=== PATIENT | male | born 1995 | race Two or more races ===

== ENCOUNTER 2025-02-19 22:43 | Inpatient (IN) | payer OTHER, SELFPAY ==
[2025-02-19 22:48] VITALS: BP 156/94; PULSE 72; RESP 16; TEMP 37.1; O2SAT 100; BMI 21.3
--- NOTE | 2025-02-19 23:00 | MHC.EDTECH ---
Did policy change clerk with pt in the bathroom pod. Pt belongings is done and in room locker 3 in the pod
[2025-02-19 23:31] LABS: Hematocrit 40.8 % (42.0-52.0); Hemoglobin 14.9 g/dl (14.0-18.0); Imm Gran Abs Auto 0.00 X10*3/uL (0.00-0.03); Imm Gran Pct Auto 0.0 % (0.0-0.4); Lymphocytes Absolute Auto 2.3 X10*3/uL (1.2-4.9); MANUAL DIFF FLAG NO; Mean Corpuscular HGB Conc 36.5 g/dl (31.0-36.0); Mean Corpuscular Hemoglobin 29.3 pg (27.0-33.0); Mean Corpuscular Volume 80.2 fL (80.0-98.0); NRBC Abs Auto 0.000 X10*3/uL (0.0-0.012); NRBC Pct Auto 0.0 /100WBC (0.0-0.2); Platelet Count 252 X10*3/uL (160-400); Red Blood Count 5.09 X10*6/uL (4.60-5.80); White Blood Count 4.5 X10*3/uL (4.8-10.8)
[2025-02-19 23:42] LABS: Cannabinoid Screen Urine POSITIVE (Not Detect)
--- NOTE | 2025-02-19 23:44 | ED_ITS ---
HPI - Psych General Chief Complaint: Psychiatric Symptoms Stated Complaint: Si without plan, sect 12 Time Seen by Provider: 02/19/25 22:45 Source: patient and EMS Mode of arrival: EMS Limitations: no limitations History of Present Illness ED Provider: Radha Ferrell NP HPI Narrative: Patient is a 29 year male presents emergency department via EMS for evaluation he is coming from [facility] where he is sent on a section 12 as an inpatient bed search. Has been having command auditory hallucinations to kill himself he does admit to SI does not endorse any specific plan. He denies homicidal ideations. He recently has had increased depression associated with a poor relationship with his significant other. He states that he has previously being seen by Dr. Wheeler he is only prescribed Lexapro which he states he has been taking. He denies any recreational drug or alcohol usage. He has no physical complaints, denies any recent ill like symptoms URI symptoms, gastrointestinal symptoms or genitourinary symptoms. Related Data Home Medications ?Medication ?Instructions ?Recorded ?Confirmed escitalopram oxalate 10 mg tablet 10 mg PO DAILY 02/1902/19/25 hydroxyzine HCl 25 mg tablet 25 mg PO QID PRN anxiety 02/19/25 02/19/25 Allergies Allergy/AdvReac Type Severity Reaction Status Date / Time No Known Allergies Allergy Verified 02/19/25 22:51 Review of Systems 2 Review of Systems: Yes all other systems are reviewed and are negative PMFSH Past Medical History Attestation statement: The following information was validated with the patient. Source: old records reviewed Social History Social History Housing: House Do you presently have visiting nurse or other home services: No Patient Tobacco Use Status: Never used Tobacco Have you been hit, kicked, punched, or otherwise hurt by someone within the past year? If so, by whom?: No Do you feel safe in your current relationship?: No Current Relationship Is there a partner from a previous relationship who is making you feel unsafe now?: No Are you made to feel afraid or neglected: No Advance Directives: No Advance Directives Information Provided: Yes Do you have a plan to hurt others: No Plan Recently lost weight without trying: Yes How much weight loss: 2-13 pounds Eating poorly because of decreased appetite: Yes Nutrition screen score: 4 Poor oral hygiene: No Physical Exam 2 Vital Signs: Vital Signs: Last Vital Signs Temp 98.9 F 02/20/25 20:00 Pulse 79 02/20/25 20:00 Resp 18 02/20/25 20:00 BP 139/87 02/20/25 20:00 Pulse Ox 98 02/20/25 20:00 O2 Del Method Room Air 02/20/25 20:00 BMI result Body Mass Index 21.3 Appearance: Alert.?Oriented to person, place and time. No acute distress.?Normal affect. Eyes: Pupils equal, round and reactive to light.? ENT: Pharynx normal.?? Neck: Normal inspection.? Neck supple.?? CVS: Heart sounds normal. Normal heart rate and rhythm.? Pulses normal.?? Respiratory: No respiratory distress.? Lung sounds clear to auscultation bilaterally?? Abdomen: Soft and non-tender. Normoactive bowel sounds. Skin: Skin warm and dry.? Normal skin color.? Extremities: No lower extremity edema.? Neuro: Moves all extremities spontaneously. Sensation intact bilaterally. CN II- XII intact. No focal neuro deficits. Ambulates with normal steady gait. Course Reevaluation(s) Reevaluation #1: DR. Mendes's Progress note:02/20/2025 8;40. No events overnight, home medication reconciliation was done, VSS, no event reported by nursing overnight, inpatient bed search is underway, Continue with physician observation. Time: 08:41 Medications Administered Generic Name Dose Route Start Last Admin Trade Name Freq PRN Reason Stop Dose Admin Escitalopram Oxalate 10 mg 02/20/25 09:00 02/20/25 10:39 Escitalopram Oxalate 10 Mg Tablet PO 10 mg DAILY CLIVE Administration Quetiapine Fumarate 25 mg 02/20/25 16:04 02/20/25 16:37 Quetiapine Fumarate 25 Mg Tablet PO 25 mg Q4H PRN Administration anxiety Trazodone HCl 50 mg 02/20/25 21:00 02/20/25 20:31 Trazodone Hcl 50 Mg Tablet PO 50 mg BEDTIME CLIVE Administration Discontinued Medications Generic Name Dose Route Start Last Admin Trade Name Freq PRN Reason Stop Dose Admin Potassium Chloride 80 meq 02/20/25 00:03 02/20/25 00:19 Potassium Chloride Packet 20 Meq Packet PO 02/20/25 00:04 80 meq ONCE ONE Administration Medical Decision Making Medical Decision Making MDM Narrative: Patient is a 29-year-old male with past medical history of depression anxiety presenting on a section 12 from the community evaluated by [facility] for inpatient bed search. He offers no physical complaints in his physical examination is benign. He does admit to SI but does not endorse any specific plan. He is calm and cooperative. Plan to obtain serum labs for medical clearance appreciate care teams facilitation for bed search additionally. Patient incidentally found to have hypokalemia 2.7 no further electrolyte derangement, no STEVENSON. No prior labs for comparison. LFTs unremarkable. Denies any recent gastrointestinal illness. He is not on diuretics. Will add on serum magnesium level. Potentially side effects from Lexapro. Plan to replace with 80 mEq potassium chloride orally and will repeat BMP in the morning. ECG reveals normal sinus rhythm with ventricular rate of 69, normal ALETHEA, QTC 430, no ST-elevation, no T-wave inversion with no ST-depression. Differential Diagnosis Differential Diagnoses: The differential diagnosis associated with the presentation includes (See narrative above and below for further detail) Admission/Observation Consideration of admission/observation: Escalation of care including admission/observation considered Patient is being observed in the Emergency Department for depression and SI. Observation time was started at 00:10 on 02/20/2025.?The patient is currently stable and non-toxic appearing. Observation is being initiated in the Emergency Department to allow time to help differentiate if the patient's depression and SI is due to Substance Induced Mood Disorder and Anxiety versus Major Depressive Disorder, Bipolar Cathryn, Bipolar Depression, and Schizophrenia. The patient will receive frequent psychiatric assessments from the provider as well as from nursing staff. The patient will also be monitored for the need of PRN agitation medications such as Haldol, Ativan, and Benadryl. Consult Healthcare Provider Management of the patient was discussed with: Behavioral Health Provider (CARE team) Lab Data [facility] Lab Attestation statement: I reviewed the patient's lab results. (See narrative above) 02/19/25 23:22 02/20/25 10:25 Labs: Lab Results 02/19/25 02/19/25 02/19/25 Range/Units 23:22 23:23 23:24 WBC 4.5 L (4.8-10.8) X10*3/uL RBC 5.09 (4.60-5.80) X10*6/uL Hgb 14.9 (14.0-18.0) g/dl Hct 40.8 L (42.0-52.0) % MCV 80.2 (80.0-98.0) fL MCH 29.3 (27.0-33.0) pg MCHC 36.5 H (31.0-36.0) g/dl RDW 11.6 (11.0-16.0) % Plt Count 252 (160-400) X10*3/uL MPV 8.9 L (9.4-12.4) fL Immature Gran % (Auto) 0.0 (0.0-0.4) % Neut % (Auto) 36.4 L (45-73) % Lymph % (Auto) 51.7 H (20-40) % Stan[place] % (Auto) 8.8 (2-11) % Eos % (Auto) 2.2 (0-4) % Baso % (Auto) 0.9 (0-2) % Lymph # (Auto) 2.3 (1.2-4.9) X10*3/uL Stanly # (Auto) 0.4 (0.1-1.2) X10*3/uL Eos # (Auto) 0.1 (0.0-0.4) X10*3/uL Baso # (Auto) 0.0 (0.0-0.2) X10*3/uL Abs Immat Gran (auto) 0.00 (0.00-0.03) X10*3/uL Absolute Neuts (auto) 1.6 L (2.0-8.3) x10*3/uL Absolute Nucleated RBC 0.000 (0.0-0.012) X10*3/uL Nucleated RBC % (auto) 0.0 (0.0-0.2) /100WBC Sodium 142 (135-145) mmol/L Potassium 2.7 L* (3.3-5.1) mmol/L Chloride 105 (96-108) mmol/L Carbon Dioxide 28 (22-29) mmol/L Anion Gap 12 (12-20) BUN 9 (9-16) mg/dL Creatinine 0.84 (0.5-1.4) mg/dL Estim Creat Clear Calc 113.2 Estimated GFR > 60 Random Glucose 126 H (60-115) mg/dL Calcium 9.0 (8.4-10.2) mg/dL Magnesium 2.2 (1.6-2.6) mg/dL Total Bilirubin 0.6 (0.0-1.0) mg/dL AST 19 (5-37) U/L ALT 14 (0-40) U/L Alkaline Phosphatase 78 (39-117) U/L Total Protein 7.0 (6.5-8.0) g/dL Albumin 4.9 (3.5-5.0) g/dL Urine Color Dark Yellow Urine Appearance Turbid Urine pH 6.0 (5.0-9.0) Ur Specific [place] 1.025 (1.005-1.025) Urine Protein Trace (Neg-Trace) mg/dL Urine Glucose (UA) Negative (Negative) mg/dL Urine Ketones 15 (Negative) mg/dL Urine Blood Negative (Negative) Urine Nitrite Negative (Negative) Ur Leukocyte Esterase Negative (Negative) Salicylates < 5.0 L (15-30) mg/dL Urine Opiates Screen Not Detected (Not Detect) Ur Buprenorphine Scrn Not Detected (Not Detect) ng/mL Ur Oxycodone Screen Not Detected (Not Detect) ng/mL Urine Methadone Screen Not Detected (Not Detect) ng/mL Urine Fentanyl Screen Not Detected (Not Detect) Acetaminophen < 3 (<30) mcg/mL Ur Barbiturates Screen Not Detected (Not Detect) Ur Phencyclidine Scrn Not Detected (Not Detect) Ur Amphetamines Screen Not Detected (Not Detect) U Benzodiazepines Scrn Not Detected (Not Detect) Urine Cocaine Screen Not Detected (Not Detect) U Marijuana (THC) Screen POSITIVE H (Not Detect) Ethyl Alcohol < 10 mg/dL 02/20/25 Range/Units 10:25 WBC (4.8-10.8) X10*3/uL RBC (4.60-5.80) X10*6/uL Hgb (14.0-18.0) g/dl Hct (42.0-52.0) % MCV (80.0-98.0) fL MCH (27.0-33.0) pg MCHC (31.0-36.0) g/dl RDW (11.0-16.0) % Plt Count (160-400) X10*3/uL MPV (9.4-12.4) fL Immature Gran % (Auto) (0.0-0.4) % Neut % (Auto) (45-73) % Lymph % (Auto) (20-40) % Stanly % (Auto) (2-11) % Eos % (Auto) (0-4) % Baso % (Auto) (0-2) % Lymph # (Auto) (1.2-4.9) X10*3/uL Stanly # (Auto) (0.1-1.2) X10*3/uL Eos # (Auto) (0.0-0.4) X10*3/uL Baso # (Auto) (0.0-0.2) X10*3/uL Abs Immat Gran (auto) (0.00-0.03) X10*3/uL Absolute Neuts (auto) (2.0-8.3) x10*3/uL Absolute Nucleated RBC (0.0-0.012) X10*3/uL Nucleated RBC % (auto) (0.0-0.2) /100WBC Sodium 143 (135-145) mmol/L Potassium 4.1 D (3.3-5.1) mmol/L Chloride 110 H (96-108) mmol/L Carbon Dioxide 28 (22-29) mmol/L Anion Gap 9 L (12-20) BUN 10 (9-16) mg/dL Creatinine 0.75 (0.5-1.4) mg/dL Estim Creat Clear Calc 126.8 Estimated GFR > 60 Random Glucose 86 (60-115) mg/dL Calcium 9.2 (8.4-10.2) mg/dL Magnesium (1.6-2.6) mg/dL Total Bilirubin (0.0-1.0) mg/dL AST (5-37) U/L ALT (0-40) U/L Alkaline Phosphatase (39-117) U/L Total Protein (6.5-8.0) g/dL Albumin (3.5-5.0) g/dL Urine Color Urine Appearance Urine pH (5.0-9.0) Ur Specific [place] (1.005-1.025) Urine Protein (Neg-Trace) mg/dL Urine Glucose (UA) (Negative) mg/dL Urine Ketones (Negative) mg/dL Urine Blood (Negative) Urine Nitrite (Negative) Ur Leukocyte Esterase (Negative) Salicylates (15-30) mg/dL Urine Opiates Screen (Not Detect) Ur Buprenorphine Scrn (Not Detect) ng/mL Ur Oxycodone Screen (Not Detect) ng/mL Urine Methadone Screen (Not Detect) ng/mL Urine Fentanyl Screen (Not Detect) Acetaminophen (<30) mcg/mL Ur Barbiturates Screen (Not Detect) Ur Phencyclidine Scrn (Not Detect) Ur Amphetamines Screen (Not Detect) U Benzodiazepines Scrn (Not Detect) Urine Cocaine Screen (Not Detect) U Marijuana (THC) Screen (Not Detect) Ethyl Alcohol mg/dL Independent Interpretation I performed an independent interpretation of an: EKG (See narrative above) Independent Historian Clinical information obtained from an independent historian. History obtained from or confirmed by: EMS External Record Review External record reviewed: Outpatient record Chronic Conditions Patient?s care impacted by: Other (See narrative above) Discharge Plan Discharge Clinical Impression: Suicidal ideation Patient Disposition: Admitted As Inpatient Interventions: Admission Worksheet (ED) Last Done: 02/20/25 15:16 Discharge Date/Time: 02/20/25 15:00
[2025-02-19 23:51] LABS: Acetaminophen LAB < 3 mcg/mL (<30); Alanine Aminotransferase 14 U/L (0-40); Albumin Level 4.9 g/dL (3.5-5.0); Alkaline Phosphatase 78 U/L (39-117); Anion Gap 12 (12-20); Aspartate Amino Transferase 19 U/L (5-37); Blood Urea Nitrogen 9 mg/dL (9-16); Calcium 9.0 mg/dL (8.4-10.2); Carbon Dioxide 28 mmol/L (22-29); Chloride 105 mmol/L (96-108); Creatinine Clr Calc Pharmacy 113.2; Estimated Glomerular Filt Rate > 60; Potassium 2.7 mmol/L (3.3-5.1); Salicylate < 5.0 mg/dL (15-30); Sodium 142 mmol/L (135-145); Total Protein 7.0 g/dL (6.5-8.0)
--- NOTE | 2025-02-20 00:04 | ECG_ITS ---
Test Reason : LOW POTASSIUM Blood Pressure : */* mmHG Vent. Rate : 69 BPM Atrial Rate : 69 BPM P-R Int : 148 ms QRS Dur : 96 ms QT Int : 402 ms P-R-T Axes : 74 68 45 degrees QTcB Int : 430 ms Normal sinus rhythm Early Repolarization Otherwise normal ECG No previous ECGs available Referred By: Radha Ferrell Electronically Signed By: POWER MADISON
[2025-02-20] MEDS: Potassium Chloride Packet 20 MEQ PACKET 80 MEQ PO (00:19)
[2025-02-20 00:43] LABS: Magnesium 2.2 mg/dL (1.6-2.6)
--- NOTE | 2025-02-20 05:29 | MHC.CARE ---
Spoke with patient's sister Myah who arrived to the ED under the impression she could sit with patient until a bed had been found. T/w explained the process and let her know she could visit patient during normal visiting hours. Patient was provided an opportunity to speak with his sister and gave verbal consent for the CARE Team and hospital staff to speak with both his sisters, during his admission. Patient provided permission to speak with Myah ([phone]) and Anuja ([phone]). Patient's sister was also concerned patient would miss work in the morning and states due to patient's recent mental health episodes, he had been missing a few days here and there. She requested a note on his behalf. T/w spoke with the charge nurse, who spoke with the assigned MULCHER OPERATOR, who agreed to call patient's job in the morning to make them aware of his pending admission. Patient will be awakened at 6:30am and allowed to get his work number out of his cell phone in his locked belongings, so he too can call out of work and also provide that number to the team. Patient made aware he would be provided a written doctor's note with his discharge paperwork.
[2025-02-20 06:39] VITALS: BP 125/74; PULSE 94; RESP 16; TEMP 36.9; O2SAT 100
--- NOTE | 2025-02-20 06:55 | MHC.CARE ---
Call to Jose, patient's employer at [phone] to make her aware of patient's admission and to see if she needed to have that information verified by the ED doc. Jose declined stating this call was enough and she was happy patient took the right step towards resolving some of the issues she has seen him face in the past few days.
[2025-02-20 08:31] LABS: Appearance Urine Turbid; Glucose Urine UA Negative (Negative); PH 6.0 (5.0-9.0); Specific Gravity - Urine 1.025 (1.005-1.025)
[2025-02-20 10:47] LABS: Blood Urea Nitrogen 10 mg/dL (9-16); Calcium 9.2 mg/dL (8.4-10.2); Creatinine Clr Calc Pharmacy 126.8; Estimated Glomerular Filt Rate > 60
[2025-02-20 10:57] LABS: Anion Gap 9 (12-20); Carbon Dioxide 28 mmol/L (22-29); Chloride 110 mmol/L (96-108); Potassium 4.1 mmol/L (3.3-5.1); Sodium 143 mmol/L (135-145)
--- NOTE | 2025-02-20 14:49 | PHA.MEDREC ---
Addendum entered by Howard Torres anuel 02/20/25 14:52: Reviewed Original Note: Pharmacy Consult ? Medication Reconciliation Pharmacy reviewed med rec done by nursing. Claims match what is confirmed.
[2025-02-20 17:09] VITALS: BP 140/70; PULSE 77; RESP 16; TEMP 36.9; O2SAT 98
[2025-02-20 17:11] VITALS: BMI 19.9
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
[2025-02-20 20:00] VITALS: BP 139/87; PULSE 79; RESP 18; TEMP 37.2; O2SAT 98
[2025-02-21 07:59] VITALS: BP 128/78; PULSE 80; RESP 16; TEMP 37; O2SAT 98
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
[2025-02-21 10:17] LABS: Hemoglobin A1C 114.6366 umol/L; Total Hemoglobin (HGBA1C) 4174.5224 umol/L
[2025-02-21 10:25] LABS: Cholesterol 170 mg/dL (<200); HDL Cholesterol 44 mg/dL (>40); Triglycerides 64 mg/dL (<150)
[2025-02-21 10:43] LABS: Free T4 (Free Thyroxine) 0.90 ng/dL (0.71-1.85); Thyroid Stimulating Hormone 0.29 uIU/mL (0.32-4.0)
[2025-02-21 10:56] LABS: Folate 9.7 ng/mL (> or = 4.0); Vitamin B12 432 pg/mL (200-900)
[2025-02-21 20:00] VITALS: BP 137/93; PULSE 71; RESP 16; TEMP 36.9; O2SAT 99
[2025-02-22 07:45] VITALS: BP 119/80; PULSE 85; RESP 16; TEMP 37.8; O2SAT 98
[2025-02-22] MEDS: buPROPion HCl XL 150 MG TAB.ER.24H PO (09:12)
[2025-02-22 10:10] VITALS: TEMP 37.1
--- NOTE | 2025-02-22 17:14 | HO.PSYCHPN ---
Subjective Subjective Date of Service: 02/22/25 Reason For Visit: SI Interim History: Feels Bupropion improved his energy and motivation. Feels slight improvement. He reports he had some nightmares and asking if there is a medication to help. Depression and anxiety continue but slightly improved. Denies SI. Review of Systems Review of Systems Yes all other systems are reviewed and are negative Mental Status Exam Mental Status Exam Narrative: adequately dressed and groomed. cooperative, no PMA/PMR. speech nml rate, amount loudness, tone, latency. thoughts linear and logical without delusions or paranoia. affect constricted, normo-intense, non-labile. mood down still. passive SI. denies HI/AVH. does have a voice which he appreciates as part of himself which engages him in negative self-talk. Diagnostics Vital Signs (24Hr): Vital Signs - 24 hr 02/21/25 20:00 02/22/25 07:45 02/22/25 10:10 Temperature 98.5 F 100.0 F 98.7 F Pulse Rate 71 85 Respiratory Rate 16 16 Blood Pressure 137/93 H 119/80 Pulse Oximetry 99 98 Oxygen Delivery Method Room Air BMI result Body Mass Index 19.9 Labs 02/19/25 23:22 02/20/25 10:25 Labs: Laboratory Results - last 48 hr 02/21/25 09:57 Estimat Average Glucose 88 Hemoglobin A1c % 4.7 Triglycerides 64 Cholesterol 170 LDL Cholesterol, Calc 114 H HDL Cholesterol 44 Vitamin B12 432 Folate 9.7 TSH 0.29 L Free T4 0.90 Medications Medications Current Medications Acetaminophen (Acetaminophen 325 Mg Tablet) 650 mg PO Q6H PRN PRN Reason: Headache/Pain, Scale 1-10 Al Hydroxide/Mg Hydroxide (Magnesium Hydrox/Alum Hydrox 30 Ml Oral.Susp) 30 ml PO Q6H PRN PRN Reason: Heartburn/Nausea Bupropion HCl (Bupropion Hcl Xl 150 Mg Tab.Er.24h) 150 mg PO DAILY [facility] Last Admin: 02/22/25 09:12 Dose: 150 mg Escitalopram Oxalate (Escitalopram Oxalate 5 Mg Tablet) 15 mg PO DAILY [facility] Last Admin: 02/22/25 09:13 Dose: 15 mg Magnesium Hydroxide (Milk Of Magnesia 30 Ml Oral.Susp) 30 ml PO DAILY PRN PRN Reason: Constipation Prazosin HCl (Prazosin Hcl 1 Mg Capsule) 1 mg PO BEDTIME [facility]; Protocol Quetiapine Fumarate (Quetiapine Fumarate 50 Mg Tablet) 50 mg PO Q4H PRN PRN Reason: anxiety/insomnia Last Admin: 02/22/25 16:59 Dose: 50 mg Trazodone HCl (Trazodone Hcl 50 Mg Tablet) 50 mg PO BEDTIME PRN PRN Reason: Insomnia Trazodone HCl (Trazodone Hcl 100 Mg Tablet) 100 mg PO BEDTIME [facility] Last Admin: 02/21/25 22:21 Dose: 100 mg Allergies Allergies Allergy/AdvReac Type Severity Reaction Status Date / Time No Known Allergies Allergy Verified 02/19/25 22:51 Assessment & Plan Assessment & Plan (1) Suicidal ideation: Status: Acute Code(s): R45.851 - Suicidal ideations (2) Major depressive episode: Status: Acute Code(s): F32.9 - Major depressive disorder, single episode, unspecified Plan increase lexapro to 15 mg daily. add wellbutrin for augmentation. increase trazodone to 100 mg QHS for insomnia. 02/22: Trial Prazosin 1 mg HS. continue current management and treatment plan. Reason for continued inpatient stay Substantial Risk for: harm to self, inability to function and rapid decompensation Time Spent With Patient Time: Total time managing care of this patient today ____ minutes.
[2025-02-22 20:00] VITALS: BP 124/72; PULSE 86; RESP 16; TEMP 36.8; O2SAT 99
[2025-02-22 22:11] VITALS: BP 123/75
[2025-02-23 08:00] VITALS: BP 122/80; PULSE 99; RESP 14; TEMP 2.9; TEMP 37.2; O2SAT 98
[2025-02-23] MEDS: buPROPion HCl XL 150 MG TAB.ER.24H PO (08:40)
--- NOTE | 2025-02-23 09:48 | HO.PSYCHPN ---
Subjective Subjective Date of Service: 02/23/25 Reason For Visit: SI Interim History: Woke up depressed and down today. No active SI. Active in the milieu. Visible. Social. On the phone. Feels Bupropion improved his overall energy and motivation. Seroquel PRN helps anxiety. Depression and anxiety continue but slightly improved. Denies SI. Review of Systems Review of Systems Yes all other systems are reviewed and are negative Mental Status Exam Mental Status Exam Narrative: adequately dressed and groomed. cooperative, no PMA/PMR. speech nml rate, amount loudness, tone, latency. thoughts linear and logical without delusions or paranoia. affect constricted, normo-intense, non-labile. mood down still. passive SI. denies HI/AVH. does have a voice which he appreciates as part of himself which engages him in negative self-talk. Diagnostics Vital Signs (24Hr): Vital Signs - 24 hr 02/22/25 10:10 02/22/25 20:00 02/22/25 22:11 Temperature 98.7 F 98.2 F Pulse Rate 86 Respiratory Rate 16 Blood Pressure 124/72 123/75 Pulse Oximetry 99 Oxygen Delivery Method Room Air 02/23/25 08:00 Temperature 37.2 F L Pulse Rate 99 Respiratory Rate 14 Blood Pressure 122/80 Pulse Oximetry 98 Oxygen Delivery Method Room Air BMI result Body Mass Index 19.9 Labs 02/19/25 23:22 02/20/25 10:25 Labs: Laboratory Results - last 48 hr 02/21/25 09:57 Estimat Average Glucose 88 Hemoglobin A1c % 4.7 Triglycerides 64 Cholesterol 170 LDL Cholesterol, Calc 114 H HDL Cholesterol 44 Vitamin B12 432 Folate 9.7 TSH 0.29 L Free T4 0.90 Medications Medications Current Medications Acetaminophen (Acetaminophen 325 Mg Tablet) 650 mg PO Q6H PRN PRN Reason: Headache/Pain, Scale 1-10 Al Hydroxide/Mg Hydroxide (Magnesium Hydrox/Alum Hydrox 30 Ml Oral.Susp) 30 ml PO Q6H PRN PRN Reason: Heartburn/Nausea Bupropion HCl (Bupropion Hcl Xl 150 Mg Tab.Er.24h) 150 mg PO DAILY [facility] Last Admin: 02/23/25 08:40 Dose: 150 mg Escitalopram Oxalate (Escitalopram Oxalate 5 Mg Tablet) 15 mg PO DAILY [facility] Last Admin: 02/23/25 08:39 Dose: 15 mg Magnesium Hydroxide (Milk Of Magnesia 30 Ml Oral.Susp) 30 ml PO DAILY PRN PRN Reason: Constipation Prazosin HCl (Prazosin Hcl 1 Mg Capsule) 1 mg PO BEDTIME [facility]; Protocol Last Admin: 02/22/25 22:11 Dose: 1 mg Quetiapine Fumarate (Quetiapine Fumarate 50 Mg Tablet) 50 mg PO Q4H PRN PRN Reason: anxiety/insomnia Last Admin: 02/22/25 16:59 Dose: 50 mg Trazodone HCl (Trazodone Hcl 50 Mg Tablet) 50 mg PO BEDTIME PRN PRN Reason: Insomnia Trazodone HCl (Trazodone Hcl 100 Mg Tablet) 100 mg PO BEDTIME [facility] Last Admin: 02/22/25 22:11 Dose: 100 mg Allergies Allergies Allergy/AdvReac Type Severity Reaction Status Date / Time No Known Allergies Allergy Verified 02/19/25 22:51 Assessment & Plan Assessment & Plan (1) Suicidal ideation: Status: Acute Code(s): R45.851 - Suicidal ideations (2) Major depressive episode: Status: Acute Code(s): F32.9 - Major depressive disorder, single episode, unspecified Plan increase lexapro to 15 mg daily. add wellbutrin for augmentation. increase trazodone to 100 mg QHS for insomnia. 02/22: Trial Prazosin 1 mg HS. continue current management and treatment plan. 02/23: Continue current management and treatment plan. Reason for continued inpatient stay Substantial Risk for: harm to self and rapid decompensation Time Spent With Patient Time: Total time managing care of this patient today ____ minutes.
[2025-02-23 20:00] VITALS: BP 129/83; PULSE 85; RESP 16; TEMP 36.9; O2SAT 98
[2025-02-23 22:32] VITALS: BP 130/91
[2025-02-24 07:20] VITALS: BP 121/81; PULSE 90; RESP 18; TEMP 36.9; O2SAT 98
[2025-02-24] MEDS: buPROPion HCl XL 150 MG TAB.ER.24H PO (09:28)
--- NOTE | 2025-02-24 16:16 | P.PNPSI_ITS ---
Subjective Subjective Date of Service: 02/24/25 Reason For Visit: SI Interim History: taking meds. feels happy, relaxed. seroquel for anxiety. slept well. monday was good, monday depression friend was whispering all day. passive SI. agreeable to schedule seroquel 75/100 and increase amount of PRNs to 75 mg per dose. Mental Status Exam Mental Status Exam Narrative: adequately dressed and groomed. cooperative, no PMA/PMR. speech nml rate, amount loudness, tone, latency. thoughts linear and logical without delusions or paranoia. affect full range, normo-intense, non-labile. mood improving. passive SI this morning. no HI/AVH expressed. does have negative self-talk voice. Diagnostics Vital Signs (24Hr): Vital Signs - 24 hr 02/23/25 20:00 02/23/25 22:32 02/24/25 07:20 Temperature 98.4 F 98.4 F Pulse Rate 85 90 Respiratory Rate 16 18 Blood Pressure 129/83 130/91 H 121/81 Pulse Oximetry 98 98 Oxygen Delivery Method Room Air Room Air BMI result Body Mass Index 19.9 Labs 02/19/25 23:22 02/20/25 10:25 Medications Medications Current Medications Acetaminophen (Acetaminophen 325 Mg Tablet) 650 mg PO Q6H PRN PRN Reason: Headache/Pain, Scale 1-10 Al Hydroxide/Mg Hydroxide (Magnesium Hydrox/Alum Hydrox 30 Ml Oral.Susp) 30 ml PO Q6H PRN PRN Reason: Heartburn/Nausea Bupropion HCl (Bupropion Hcl Xl 150 Mg Tab.Er.24h) 150 mg PO DAILY [facility] Last Admin: 02/24/25 09:28 Dose: 150 mg Escitalopram Oxalate (Escitalopram Oxalate 5 Mg Tablet) 15 mg PO DAILY [facility] Last Admin: 02/24/25 09:27 Dose: 15 mg Magnesium Hydroxide (Milk Of Magnesia 30 Ml Oral.Susp) 30 ml PO DAILY PRN PRN Reason: Constipation Prazosin HCl (Prazosin Hcl 1 Mg Capsule) 2 mg PO BEDTIME [facility]; Protocol Quetiapine Fumarate (Quetiapine Fumarate 25 Mg Tablet) 75 mg PO Q4H PRN PRN Reason: anxiety/insomnia Quetiapine Fumarate (Quetiapine Fumarate 25 Mg Tablet) 75 mg PO DAILY [facility] Quetiapine Fumarate (Quetiapine Fumarate 100 Mg Tablet) 100 mg PO BEDTIME [facility] Trazodone HCl (Trazodone Hcl 50 Mg Tablet) 50 mg PO BEDTIME PRN PRN Reason: Insomnia Last Admin: 02/23/25 22:21 Dose: 50 mg Trazodone HCl (Trazodone Hcl 100 Mg Tablet) 100 mg PO BEDTIME [facility] Last Admin: 02/23/25 22:21 Dose: 100 mg Allergies Allergies Allergy/AdvReac Type Severity Reaction Status Date / Time No Known Allergies Allergy Verified 02/19/25 22:51 Assessment & Plan Assessment & Plan (1) Suicidal ideation: Status: Acute Code(s): R45.851 - Suicidal ideations (2) Major depressive episode: Status: Acute Code(s): F32.9 - Major depressive disorder, single episode, unspecified Plan increase lexapro to 15 mg daily. add wellbutrin for augmentation. increase trazodone to 100 mg QHS for insomnia. 02/22: Trial Prazosin 1 mg HS. continue current management and treatment plan. 02/23: Continue current management and treatment plan. 02/24: seroquel helpful for anxiety, not sedating at 50 mg per dose. increase PRNs to 75 mg each and schedule 75 daily and 100 QHS. SI continues. continue elexapro 15 and wellbutrin 150. Reason for continued inpatient stay Substantial Risk for: harm to self and inability to function Time Spent With Patient Time: Total time managing care of this patient today __25__ minutes.
[2025-02-24 20:00] VITALS: BP 139/67; PULSE 94; RESP 16; TEMP 36.8; O2SAT 98
[2025-02-24 22:05] VITALS: BP 138/91; PULSE 84; RESP 16
[2025-02-25 07:44] VITALS: BP 118/73; RESP 16; TEMP 36.6; O2SAT 91
[2025-02-25] MEDS: buPROPion HCl XL 150 MG TAB.ER.24H PO (08:13)
--- NOTE | 2025-02-25 15:43 | HO.PSYCHPN ---
Subjective Subjective Date of Service: 02/25/25 Reason For Visit: SI Interim History: pleasant, calm. feeling much improved. denies safety concerns. amenable to discharge . per staff, depression worsened yesterday. anxiety varies. social, interactive. dreams re ex GF. meds helping but not enough. decreased negative self-talk. passive SI. slept 6 hours. Mental Status Exam Mental Status Exam Narrative: adequately dressed and groomed. cooperative, no PMA/PMR. speech nml rate, amount, loudness, tone, latency. thoughts linear and logical without delusions or paranoia. affect full range, normo-intense, non-labile. mood improved. no SI. no HI/AVH expressed. Diagnostics Vital Signs (24Hr): Vital Signs - 24 hr 02/24/25 20:00 02/24/25 22:05 02/25/25 07:44 Temperature 98.3 F 97.8 F Pulse Rate 94 84 Respiratory Rate 16 16 16 Blood Pressure 139/67 138/91 H 118/73 Pulse Oximetry 98 91 L Oxygen Delivery Method Room Air Room Air BMI result Body Mass Index 19.9 Labs 02/19/25 23:22 02/20/25 10:25 Medications Medications Current Medications Acetaminophen (Acetaminophen 325 Mg Tablet) 650 mg PO Q6H PRN PRN Reason: Headache/Pain, Scale 1-10 Al Hydroxide/Mg Hydroxide (Magnesium Hydrox/Alum Hydrox 30 Ml Oral.Susp) 30 ml PO Q6H PRN PRN Reason: Heartburn/Nausea Bupropion HCl (Bupropion Hcl Xl 150 Mg Tab.Er.24h) 150 mg PO DAILY [facility] Last Admin: 02/25/25 08:13 Dose: 150 mg Escitalopram Oxalate (Escitalopram Oxalate 5 Mg Tablet) 15 mg PO DAILY [facility] Last Admin: 02/25/25 08:13 Dose: 15 mg Magnesium Hydroxide (Milk Of Magnesia 30 Ml Oral.Susp) 30 ml PO DAILY PRN PRN Reason: Constipation Prazosin HCl (Prazosin Hcl 1 Mg Capsule) 2 mg PO BEDTIME [facility]; Protocol Last Admin: 02/24/25 22:08 Dose: 2 mg Quetiapine Fumarate (Quetiapine Fumarate 25 Mg Tablet) 75 mg PO Q4H PRN PRN Reason: anxiety/insomnia Last Admin: 02/25/25 15:15 Dose: 75 mg Quetiapine Fumarate (Quetiapine Fumarate 25 Mg Tablet) 75 mg PO DAILY [facility] Last Admin: 02/25/25 08:13 Dose: 75 mg Quetiapine Fumarate (Quetiapine Fumarate 100 Mg Tablet) 100 mg PO BEDTIME [facility] Last Admin: 02/24/25 22:08 Dose: 100 mg Trazodone HCl (Trazodone Hcl 50 Mg Tablet) 50 mg PO BEDTIME PRN PRN Reason: Insomnia Last Admin: 02/23/25 22:21 Dose: 50 mg Trazodone HCl (Trazodone Hcl 100 Mg Tablet) 100 mg PO BEDTIME [facility] Last Admin: 02/24/25 22:08 Dose: 100 mg Allergies Allergies Allergy/AdvReac Type Severity Reaction Status Date / Time No Known Allergies Allergy Verified 02/19/25 22:51 Assessment & Plan Assessment & Plan (1) Suicidal ideation: Status: Acute Code(s): R45.851 - Suicidal ideations (2) Major depressive episode: Status: Acute Code(s): F32.9 - Major depressive disorder, single episode, unspecified Plan increase lexapro to 15 mg daily. add wellbutrin for augmentation. increase trazodone to 100 mg QHS for insomnia. 02/22: Trial Prazosin 1 mg HS. continue current management and treatment plan. 02/23: Continue current management and treatment plan. 02/24: seroquel helpful for anxiety, not sedating at 50 mg per dose. increase PRNs to 75 mg each and schedule 75 daily and 100 QHS. SI continues. continue lexapro 15 and wellbutrin 150. 02/25: feeling well on current regimen. agrees to continue as is. planning for discharge. Reason for continued inpatient stay Substantial Risk for: harm to self and inability to function Time Spent With Patient Time: Total time managing care of this patient today __25__ minutes.
[2025-02-25 20:00] VITALS: BP 130/79; PULSE 97; RESP 16; TEMP 36.5; O2SAT 100
[2025-02-25 21:09] VITALS: BP 126/81
[2025-02-26 07:48] VITALS: BP 117/66; PULSE 86; RESP 16; TEMP 36.4; O2SAT 99
[2025-02-26] MEDS: buPROPion HCl XL 150 MG TAB.ER.24H PO (09:01)
--- NOTE | 2025-02-26 11:11 | P.DS_ITS ---
DS: Providers Provider Date of Service: 02/26/25 Date of admission: 02/20/25 14:12 Date of discharge: 02/27/25 Primary care physician: Unknown Physician DS: Diagnosis Discharge Diagnosis (1) Suicidal ideation: Status: Acute (2) Major depressive episode: Status: Acute DS: Medications Discharge Medications Home Medications: Previous Rx's ?Medication ?Instructions ?Recorded bupropion HCl 150 mg 24 hr tablet, 150 mg PO DAILY 30 days #30 tabs 02/26/25 extended release escitalopram oxalate 5 mg tablet 15 mg (3 x 5 mg) PO D AILY 30 days 02/26/25 #90 tabs prazosin 1 mg capsule 2 mg PO BEDTIME 30 days #60 caps 02/26/25 quetiapine 100 mg tablet 100 mg PO BEDTIME 30 days #3 0 tabs 02/26/25 quetiapine 25 mg tablet See Rx Instructions .Route 0 02/26/25 .COMPLEX #180 tabs trazodone 100 mg tablet 100 mg PO BEDTIME 30 days #3 0 tabs 02/26/25 Mental Status Exam Mental Status Exam Narrative: adequately dressed and groomed. cooperative, no PMA/PMR. speech nml rate, amount, loudness, tone, latency. thoughts linear and logical without delusions or paranoia. affect full range, normo-intense, non-labile. mood great. no SI/HI/AVH. Data Data Completed and Pending Completed studies during hospitalization [Text1]: 02/19/25 02/19/25 02/19/25 23:22 23:23 23:24 WBC 4.5 L RBC 5.09 Hgb 14.9 Hct 40.8 L MCV 80.2 MCH 29.3 MCHC 36.5 H RDW 11.6 Plt Count 252 MPV 8.9 L Immature Gran % (Auto) 0.0 Neut % (Auto) 36.4 L Lymph % (Auto) 51.7 H Mingo % (Auto) 8.8 Eos % (Auto) 2.2 Baso % (Auto) 0.9 Lymph # (Auto) 2.3 Mingo # (Auto) 0.4 Eos # (Auto) 0.1 Baso # (Auto) 0.0 Abs Immat Gran (auto) 0.00 Absolute Neuts (auto) 1.6 L Absolute Nucleated RBC 0.000 Nucleated RBC % (auto) 0.0 Sodium 142 Potassium 2.7 L* Chloride 105 Carbon Dioxide 28 Anion Gap 12 BUN 9 Creatinine 0.84 Estim Creat Clear Calc 113.2 Estimated GFR > 60 Random Glucose 126 H Estimat Average Glucose Hemoglobin A1c % Calcium 9.0 Magnesium 2.2 Total Bilirubin 0.6 AST 19 ALT 14 Alkaline Phosphatase 78 Total Protein 7.0 Albumin 4.9 Triglycerides Cholesterol LDL Cholesterol, Calc HDL Cholesterol Vitamin B12 Folate TSH Free T4 Urine Color Dark Yellow Urine Appearance Turbid Urine pH 6.0 Ur Specific Howard 1.025 Urine Protein Trace Urine Glucose (UA) Negative Urine Ketones 15 Urine Blood Negative Urine Nitrite Negative Ur Leukocyte Esterase Negative Salicylates < 5.0 L Urine Opiates Screen Not Detected Ur Buprenorphine Scrn Not Detected Ur Oxycodone Screen Not Detected Urine Methadone Screen Not Detected Urine Fentanyl Screen Not Detected Acetaminophen < 3 Ur Barbiturates Screen Not Detected Ur Phencyclidine Scrn Not Detected Ur Amphetamines Screen Not Detected U Benzodiazepines Scrn Not Detected Urine Cocaine Screen Not Detected U Marijuana (THC) Screen POSITIVE H Ethyl Alcohol < 10 02/20/25 02/21/25 10:25 09:57 WBC RBC Hgb Hct MCV MCH MCHC RDW Plt Count MPV Immature Gran % (Auto) Neut % (Auto) Lymph % (Auto) Mingo % (Auto) Eos % (Auto) Baso % (Auto) Lymph # (Auto) Mingo # (Auto) Eos # (Auto) Baso # (Auto) Abs Immat Gran (auto) Absolute Neuts (auto) Absolute Nucleated RBC Nucleated RBC % (auto) Sodium 143 Potassium 4.1 D Chloride 110 H Carbon Dioxide 28 Anion Gap 9 L BUN 10 Creatinine 0.75 Estim Creat Clear Calc 126.8 Estimated GFR > 60 Random Glucose 86 Estimat Average Glucose 88 Hemoglobin A1c % 4.7 Calcium 9.2 Magnesium Total Bilirubin AST ALT Alkaline Phosphatase Total Protein Albumin Triglycerides 64 Cholesterol 170 LDL Cholesterol, Calc 114 H HDL Cholesterol 44 Vitamin B12 432 Folate 9.7 TSH 0.29 L Free T4 0.90 Urine Color Urine Appearance Urine pH Ur Specific Howard Urine Protein Urine Glucose (UA) Urine Ketones Urine Blood Urine Nitrite Ur Leukocyte Esterase Salicylates Urine Opiates Screen Ur Buprenorphine Scrn Ur Oxycodone Screen Urine Methadone Screen Urine Fentanyl Screen Acetaminophen Ur Barbiturates Screen Ur Phencyclidine Scrn Ur Amphetamines Screen U Benzodiazepines Scrn Urine Cocaine Screen U Marijuana (THC) Screen Ethyl Alcohol DS: Summary Hospital Course Hospital Course: per 02/21 admission note: HPI Narrative: per [facility] crisis eval, pt was seen at [facility] due to worsening depression, anxiety, rage. he reportedly, some days prior to presentation, had taken #15 x 25 mg hydroxyzine tabs in suicide attempt. a major stressor has been the end of a significant relationship about 6 months ago with a woman with whom he has a now 3 yo daughter. his ex moved out with their daughter, and pt has been struggling with sadness and anger since. he recently learned his ex has a new significant other, which has increased his rage recently and stoked conflict between the two of them. despite having overdosed several days prior, he did not seek help until the day of presentation, when he began to feel increasingly suicidal and informed his sisters, who convinced him to come in for crisis eval. sisters gave collateral of imaginary friend that pt talks to. pt acknowledged and described this friend engages him in negative self-talk and instructed him to overdose on hydroxyzine last week. on interview with MD, pt was calm, cooperative, polite. he described his imaginary friend as an aspect of himself and recognizes the AH as thoughts that are produced by his own mind; these phenomena are best interpreted as negative self-talk. he has no signs of thought disorder or psychosis otherwise. he reported having taken no psych meds prior to several weeks ago, when he started lexapro 10 mg daily via his PCP. he identifies as target Sx his negativity, poor communication, poor mood, and insomnia. options of abilify versus wellbutrin augmentation discussed, as well as increasing lexapro dosing. pt opts to increase lexapro dosing to 15 mg daily and add wellbutrin as augmentation strategy. pt endorses amotivation, anhedonia, anergia and substantil sources of morbidity in his illness. he also agrees to increase trazodone to 100 mg QHS, finding the 50 mg he had the night prior inadequate to the task. he is interested in referrals for therapy and medications at discharge. Past Psychiatric History: hosps: none prior SA: h/o x2. hydroxyzine overdose just prior to the present hospitalization. 2023 attempted hanging himself with an electrical cord, was found in process by ex-GF. did not seek help after. also reports at 21 yo was thinking of shooting himself in the head (reports he did have a gun at the time but no longer), but did not carry it out due to thinking of his mother. SIB: reports h/o cutting at 15-16 yo HIB: denies outpt: PCP prescribing lexapro, has only been on it about 3 weeks. h/o therapy at 21-23 yo, which he found very helpful. no h/o psych meds prior to lexapro. Medical Evaluation Reviewed: Yes PMFSH Narrative: denies any medical problems Family History: mother - depression, undiagnosed father - alcohol use disorder Social History: had been living in his own home, moved in with his mother in the past week since his overdose attempt. 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 some college. learning disability and IEP in younger years (per [facility], pt has dyslexia, reached all developmental milestones normally aside from speech, which began at 3 yo). Substance History: tobacco - denies alcohol - once weekly, three beers on each such occasion cannabis - about 4x/wk denies use of other substances Trauma History: denies Precis: 02/21: increase lexapro to 15 mg daily. add wellbutrin for augmentation. increase trazodone to 100 mg QHS for insomnia. 02/22: Trial Prazosin 1 mg HS. continue current management and treatment plan. 02/23: Continue current management and treatment plan. 02/24: seroquel helpful for anxiety, not sedating at 50 mg per dose. increase PRNs to 75 mg each and schedule 75 daily and 100 QHS. SI continues. continue lexapro 15 and wellbutrin 150. 02/25: feeling well on current regimen. agrees to continue as is. planning for discharge. 02/26: no SI. feeling improved. meds reviewed, reconciled, prescribed. planning for discharge tomorrow. 02/27: stable and safe overnight. discharged as per plan to outpt F/U. Time Spent with Patient Time attestation: Total time managing care of this patient today __35__ minutes. Discharge Plan Discharge Anticipated Discharge Date/Time: 02/27/25 11:30 Patient Disposition: Home, Self-Care Discharge Diagnosis: Major Depressive Episode Referrals: Michela Velasco (Therapy) [Other] - 03/05/25 11:00 am Referral Note: IN OFFICE APPOINTMENT Aidee Marino (Psychiatry) [Other] - 04/07/25 11:00 am Referral Note: TELEHEALTH APPOINTMENT [facility] [Provider Group] - 1 Week Referral Note: 02-25-25 [facility] was added to patients chart. Please call [phone] to schedule a follow up appt within 7-10 days of discharge. Discharge Medications: New quetiapine 25 mg Tablet See Rx Instructions .ROUTE .COMPLEX Qty: 180 1RF Rx Instructions: 75 mg orally once daily and once daily as needed for anxiety. prazosin 1 mg Capsule 2 mg PO BEDTIME 30 Days Qty: 60 1RF Protocol: Hold for SBP< HOLD for SBP < : 90 quetiapine 100 mg Tablet 100 mg PO BEDTIME 30 Days Qty: 30 1RF bupropion HCl 150 mg Tablet Extended Release 24 Hr 150 mg PO DAILY 30 Days Qty: 30 1RF escitalopram oxalate 5 mg Tablet 15 mg PO DAILY 30 Days Qty: 90 1RF trazodone 100 mg Tablet 100 mg PO BEDTIME 30 Days Qty: 30 1RF Discontinued hydroxyzine HCl 25 mg tablet 25 mg PO QID PRN (Reason: anxiety) escitalopram oxalate 10 mg tablet 10 mg PO DAILY Discharge Orders: Discharge Order (Routine); Ordered 02/27/25 Ordered By: Jovon Duong Diet: Advance to usual diet Activity on Discharge: As tolerated Stand Alone Forms: Patient Portal Discharge page, Community Support Print Language: Serbian Care Plan Goals: remain safe and stable in the outpatient treatment setting Health Concerns: none Plan of Treatment: take medications as prescribed, attend appointments as scheduled Assessment: not at imminent risk of harm to self or others
[2025-02-26 20:00] VITALS: BP 139/75; PULSE 88; RESP 16; TEMP 36.8; O2SAT 99
[2025-02-26 21:48] VITALS: BP 139/75
[2025-02-27 07:00] VITALS: BMI 20.2
[2025-02-27 07:15] VITALS: BP 118/73; PULSE 92; RESP 17; TEMP 36.5; O2SAT 92
[2025-02-27] MEDS: buPROPion HCl XL 150 MG TAB.ER.24H PO (08:28)
== END 2025-02-27 12:03 | disposition home or self-care (01) | DRG 881 ==
LOC: HO.ED 02-20 00:37 → HO.PADLT16 02-20 14:19
PROVIDERS: Nurse Practitioner Family; Admitting Provider Psychiatry & Neurology Psychiatry; Emergency Provider Internal Medicine; Visit Provider Psychiatry & Neurology Psychiatry
DX: F32.9 Major depressive disorder, single episode, unspecified (principal); R45.851 Suicidal ideations; Z79.899 Other long term (current) drug therapy
CPT/HCPCS: 36415; 80048; 80053; 80061; 80143; 80179; 80307; 81003; 82607; 82746; 83036; 83735; 84439; 84443; 85025; 93005; 99285

== ENCOUNTER → 2025-02-20 00:04 | Outpatient (BNV) | payer OTHER, SELFPAY | PROVIDERS: Admitting Provider Psychiatry & Neurology Psychiatry; Emergency Provider Internal Medicine; Visit Provider Internal Medicine | DX: E87.6 Hypokalemia (principal) | CPT/HCPCS: 93010 ==

== ENCOUNTER → 2025-02-20 14:12 | Outpatient (BNV) | payer OTHER, SELFPAY | PROVIDERS: Admitting Provider Psychiatry & Neurology Psychiatry; Emergency Provider Internal Medicine; Visit Provider Psychiatry & Neurology Psychiatry | DX: F32.2 Major depressive disorder, single episode, severe without psychotic features (principal); R45.851 Suicidal ideations | CPT/HCPCS: 90792; 99232 ==